=== PATIENT | female | born 1950 | race Caucasian/White ===

== ENCOUNTER 2017-01-22 17:27 | Emergency (ER) | payer MEDICARE, OTHER ==
[~2017-01-22] VITALS: Ht 162.6 cm; Wt 54.5 kg
[~2017-01-22 17:27] MED LIST: ALBU8.5H2 INHALATION; BUSP15TA3 PO; CHOL100045 PO; CIPR-198 PO; DILT180C9 PO; GABA-502 PO; HYDR-4003 PO; IPRA42SP NS; LEVO125T6 PO; METR500T PO; MORP60CA19 PO; ONDA-53 PO; POTA10CA42 PO; PRAV10TA2 PO; TIOT18CA3 IH; VENL75CA95 PO
[2017-01-22 17:35] VITALS: BP 134/83; PULSE 121; RESP 20; O2SAT 92
--- NOTE | 2017-01-22 19:03 | DRSVH ---
PROCEDURE: X-RAY RIGHT RIBS INCLUDEING PA CHEST, MINUMUM THREE VIEWS ([id number]) INDICATIONS: CONTUSION RIGHT RIBS TECHNIQUE: 2 views of the right ribs were acquired, along with a single view chest. COMPARISON: [facility], CR, XR CHEST 2VW, 09/15/2016, 16:52. FINDINGS: Surgical changes and devices: There are vascular clips in the region of the gallbladder bed and in th e lower lumbar spine there are pedicle screws on the margin of the images. Bones and chest wall: Acute nondisplaced fractures of the anterolateral right ninth and 10th ribs are present.. No suspicious bony lesions. Overlying soft tissues appear unremarkable. Lungs and pleura: No pleural effusions or pneumothorax. There is some subsegmental atelectasis at th e right lung base. Mediastinum: Mediastinal contours appear normal. Heart size is normal. IMPRESSION: Nondisplaced anterolateral right ninth and 10th ribs are present. Dictated by: Michael Powell M.D. on 01/22/2017 at 19:00 Approved by: Michael Powell M.D. on 01/22/2017 at 19:02
--- NOTE | 2017-01-22 20:27 | ED.REPORT ---
HPI-Trauma Minor / Fall Date of Service Jan 22, 2017 ED Provider: Gisele Núñez MD Patient is a 66 year old female with a history of COPD, asthma, hypertension, and chronic back pain who presents to the ED with right sided back pain following a ground level fall this afternoon. Patient reports that she suddenly become unsteady, falling onto a shelving unit. Patient reports pain with breathing and increased shortness of breath since the injury. Patient also reports some right sided abdominal pain and right knee pain. Patient denies loss of consciousness or head trauma. Nursing Notes Stated Complaint: GLF HURT BACK AND RIBS Chief Complaint: Multiple Trauma/Fall Nursing Notes Reviewed: Yes Allergies: Coded Allergies: Penicillins (Verified Allergy, Severe, 12/31/15) Sulfa (Sulfonamide Antibiotics) (Verified Allergy, Unknown, 12/31/15) budesonide (Verified Allergy, Unknown, 01/22/17) codeine (Verified Allergy, Unknown, 01/22/17) lisinopril (Verified Allergy, Unknown, 01/22/17) lovastatin (Verified Allergy, Unknown, 01/22/17) quinine (Verified Allergy, Unknown, 01/22/17) simvastatin (Verified Allergy, Unknown, 01/22/17) valsartan (Verified Allergy, Unknown, 01/22/17) oxycodone HCl (Verified Adverse Reaction, Intermediate, 01/22/17) Scheduled Buspirone (Buspirone) 15 Mg Tablet 7.5 MG PO BID Cholecalciferol (Vitamin D3) (Vitamin D) 1,000 Unit Capsule 1,000 UNIT PO DAILY Ciprofloxacin (Ciprofloxacin) 500 Mg Tablet 500 MG PO BID Diltiazem ER (Diltiazem ER) 180 Mg Cap.er.deg 360 MG PO DAILY Gabapentin (Gabapentin) 300 Mg Capsule 300 MG PO TID Ipratropium [place] (Atrovent 0.06% Nasal) 15 Ml [place] 2 SPRAY NS QID Levothyroxine (Levothyroxine) 125 Mcg Tablet 125 MCG PO DAILY Metronidazole (Flagyl) 500 Mg Tablet 500 MG PO Q8H Morphine Sulfate ER (Morphine Sulfate ER) 60 Mg Capsule 60 MG PO DAILY Potassium Chloride (Potassium Chloride) 10 Meq Capsule.er 10 MEQ PO DAILY TAKE WITH FOOD Pravastatin (Pravastatin) 10 Mg Tablet 10 MG PO HS Tiotropium [place] (Spiriva) 18 Mcg Cap.w.dev 18 MCG IH DAILY Venlafaxine ER (Venlafaxine ER) 75 Mg Cap.er.24h 150 MG PO DAILY Scheduled PRN Albuterol HFA (Proair HFA) 8.5 Gm Hfa.aer.ad 2 PUFFS INHALATION Q4H PRN PRN For Shortness of Breath Hydrocodone-Acetaminophen 5-325 mg (Hydrocodone-Acetaminophen 5-325 mg) 1 Each Tablet 1 TABLET PO Q6 PRN PRN For Pain Ondansetron (Ondansetron) 4 Mg Tablet 4 MG PO Q6 PRN PRN For Nausea Ondansetron ODT (Ondansetron ODT) 4 Mg Tab.rapdis 4 MG PO Q6H PRN PRN For Nausea General Time Seen by MD: 20:25 Chief Complaint Fall, Other (back/rib pain) Hx Obtained From: Patient Arrived By: Wheelchair Onset Occurred: Just prior to arrival Symptom Duration: Since onset Location: Back Quality: Painful Severity: Current: Moderate Severity: Maximum: Moderate Recent Healthcare: No recent doctor visit, No recent hospitalization Similar Sx Previous: No Past Medical History Past Medical History Chronic back pain Arthritis Osteoporosis IBS Reports: Asthma, COPD, Cancer, GERD, Hypertension Past Surgical History Hip surgery Reports: Appendectomy, Cataract surgery, Hysterectomy, Tonsillectomy Reports: Back/neck surgery Smoking History Current Some Day Smoker Social History Alcohol Use: "Social" Other Social History: Local resident Ambulatory Status Independent Review of Systems Respiratory: Reports: Shortness of breath Musculoskeletal: Reports: Back pain, Extremity pain, Joint pain Neurologic: Denies: Change LOC, Headache Complete sys rev & neg: except as marked. Cardiovascular: Reports: Chest pain Physical Exam Physical Exam Notes: Initial Vital Signs Vital Signs (First) Date Time Temp Pulse Resp B/P Pulse Ox O2 Delivery O2 Flow Rate FiO2 01/22/17 17:35 36.2 121 20 134/83 92 Room Air Initial VS: Reviewed Skin: Warm, Dry, No cyanosis Neurologic: Alert, Oriented, Nonfocal Psychiatric: Mood/affect normal, Behavior normal, Normal thought content General/Constitutional: Awake, Alert Neck: Supple, No midline vertebral tend Head / Eyes: Atraumatic, Normocephalic, PERRL ENT: Atraumatic, Airway patent Respiratory / Chest: Breath sounds = bilat, No respiratory distress, No rales, No rhonchi Wheezing / Retractions: Positive: Wheeze insp/exp diffuse Cardiovascular: Heart rate NL, Regular rhythm, No murmurs Abdomen: Soft, Non-tender, No guarding, No rebound Back: No midline vertebral tend superficial abrasion with underlying contusion to the right flank Upper Extremity / MS: Full range of motion, No deformity Lower Extremity / Pelvis / MS: Full range of motion, Non-tender, No deformity Lower Ext Brief Normals: Knee R exam normal Interpretation & Diagnostics X-Ray Interpretation Xray Interpretation: IMPRESSION: Nondisplaced anterolateral right ninth and 10th ribs are present. Dictated by: Michael Powell M.D. on 01/22/2017 at 19:00 Approved by: Michael Powell M.D. on 01/22/2017 at 19:02 Study Performed: XR Ribs Interpretation / Wet Read by: Interpret - Radiologist Re-Eval/Medical Decision Med Decision/Clinical Course 66-year-old female with extensive past medical history including COPD here after mechanical trip and fall. She has right rib pain. Differential diagnosis includes but is not limited to rib fracture versus contusion versus abrasion versus pneumothorax. X-ray shows ninth and 10th rib fractures which are nondisplaced. She has no associated pneumothorax. Patient was here during her normally scheduled home DuoNeb, so I provided her a DuoNeb in the emergency department. She was also given Percocet in the emergency department, and an incentive spirometer. She was given instructions for how to use her incentive spirometer, along with a prescription for [place] to go home with. At this time, I do not feel she requires prophylactic antibiotics. She was given very strict return precautions and is amenable to discharge at this time with follow-up with her primary care physician. Source of Hx: Old records Re-Evaluation/Progress : Time of Eval: 21:31 Re-Evaluation/Progress Note: Informed the patient that she has sustained two rib fractures. She will be discharged home with pain medication. Patient understands and agrees with the plan to be discharged home. Discharge instructions and follow-up discussed. All questions were addressed. Return to the ED warnings given. Counseled Regarding: Diagnosis, Need for follow-up, When/why to return to ED Discharge & Departure Impression: Primary Impression: Multiple fractures of ribs of right side Encounter type: initial encounter Fracture type: closed Qualified Code: S22.41XA - Multiple fractures of ribs, right side, initial encounter for closed fracture Additional Impression: Fall from ground level Disposition: Home Discharge Condition All VS Reviewed: Yes Condition: Stable Patient Instructions: Rib Fracture (ED) Additional Instructions: Your x-ray today shows that you have two rib fractures. You should use in the incentive spirometer as directed. Make sure that you take deep breaths, this will help prevent pneumonia. Take Hydrocodone/APAP as prescribed for pain. Use Zofran as needed for nausea. You should use a stool softener. If your knee continues to bother you, this is something you can speak to your doctor about. You should follow-up with your doctor in the next 1-2 days. Return to the Emergency Department if you develop increasing shortness of breath , chest pain, fever, or any other concerning symptoms. Your blood pressure was elevated in the emergency department today. You should follow-up with your primary care physician regarding your high blood pressure. You may need to be started on medication to manage your blood pressure. Referrals: Racheal Mohamud MD (PCP) Scribe Attestation Portions of this note were transcribed by Ela Rose. I, Dr. Núñez personally performed the history, physical exam and medical decision-making; I reviewed and confirmed the accuracy of the information in the transcribed note. Signed by: Sushma Guillory, 01/22/2017 [id number] copies to: Racheal Mohamud MD, Rebecca A MD Jan 22, 2017 20:27 Ela Rose Jan 22, 2017 20:37
[2017-01-22] MEDS ORDERED: _HYDROcodone/APAP 5-325 mg Tablet PO PRN (20:35)
[2017-01-22] MEDS ORDERED: oxyCODONE-Acetamin 5-325 mg Tablet PO ONE (20:35)
[2017-01-22] MEDS ORDERED: Albuterol-Ipratropium 3 mL Inhalation Solution NEB ONE (20:35)
[2017-01-22 21:07] VITALS: PULSE 122; RESP 26; O2SAT 98
[2017-01-22] MEDS ORDERED: ONDA4TAB12 PO (21:33)
[2017-01-22 22:03] VITALS: BP 146/61; PULSE 123; RESP 20; O2SAT 91
== END 2017-01-22 22:10 | disposition home or self-care (01) ==
LOC: SED 17:27
DX: S22.41XA Multiple fractures of ribs, right side, initial encounter for closed fracture (principal); S30.1XXA Contusion of abdominal wall, initial encounter; W18.39XA Other fall on same level, initial encounter; Y93.89 Activity, other specified; Y92.89 Other specified places as the place of occurrence of the external cause; Y99.8 Other external cause status; R06.02 Shortness of breath; M25.561 Pain in right knee; J44.9 Chronic obstructive pulmonary disease, unspecified; I10 Essential (primary) hypertension; K21.9 Gastro-esophageal reflux disease without esophagitis; F17.200 Nicotine dependence, unspecified, uncomplicated; Z88.0 Allergy status to penicillin; Z88.2 Allergy status to sulfonamides; Z88.5 Allergy status to narcotic agent; Z88.8 Allergy status to other drugs, medicaments and biological substances
CPT/HCPCS: 71101; 94664; 99284; J7620